=== PATIENT | male | born 1970 | race Caucasian/White ===

== ENCOUNTER 2018-02-14 21:30 | Inpatient (IN) | payer OTHER ==
[~2018-02-14] VITALS: Ht 175.3 cm; Wt 118.0 kg
[2018-02-14] MEDS ORDERED: LABETALOL 5MG/ML, 20ML IVPush STA ×2 (22:12→23:26)
[2018-02-14 22:37] LABS: BASOPHILS # (AUTO) 0.02 x10^3/uL (0-0.1); BASOPHILS % (AUTO) 0 % (0-1); EOSINOPHILS # (AUTO) 0.39 x10^3/uL (0-0.4); EOSINOPHILS % (AUTO) 4 % (1-7); LYMPHOCYTES # (AUTO) 1.42 x10^3/uL (1-3.4); LYMPHOCYTES % (AUTO) 15 % (22-44); MD NO; MEAN CORPUSCULAR HEMOGLOBIN 32.2 pg (27.5-34.5); MEAN CORPUSCULAR HGB CONC 34.7 g/dL (33.2-36.2); MEAN CORPUSCULAR VOLUME 92.7 fL (81-97); MEAN PLATELET VOLUME 7.3 fL (7.4-10.4); MONOCYTES # (AUTO) 0.79 x10^3/uL (0.2-0.8); MONOCYTES % (AUTO) 8 % (2-9); NEUTROPHILS # (AUTO) 7.06 x10^3/uL (1.8-6.8); NEUTROPHILS % (AUTO) 73 % (42-75); PLATELET COUNT 265 x10^3/uL (130-400); RED BLOOD COUNT 4.87 x10^6/uL (4.38-5.82); RED CELL DISTRIBUTION WIDTH 13.3 % (9.4-14.8)
[2018-02-14 22:48] LABS: ALANINE AMINOTRANSFERASE 33 U/L (12-78); ALBUMIN 3.6 g/dL (3.4-5.0); ANION GAP 8 mmol/L (5-15); CALCIUM 8.5 mg/dL (8.5-10.1); CHLORIDE 107 mmol/L (98-107)
[2018-02-14 22:52] LABS: ALKALINE PHOSPHATASE 77 U/L (45-117); BILIRUBIN,TOTAL 0.4 mg/dL (0.2-1.0); TOTAL PROTEIN 7.1 g/dL (6.4-8.2); TROPONIN I 0.055 ng/mL (0.000-0.045)
[2018-02-14] MEDS ORDERED: ASPIRIN 81 MG TABLET CHEW PO ONE (23:30)
[2018-02-14] MEDS ORDERED: ASPIRIN 81 MG TABLET CHEW ONE (23:40)
[2018-02-14] MEDS ORDERED: LABETALOL 20 MG/4 ML ONE (23:40)
[2018-02-14] MEDS ORDERED: ENOXAPARIN 120MG/0.8ML SQ STA (23:43)
[2018-02-15] VITALS (10 sets, daily range): BP systolic 164–192; BP diastolic 77–130
[2018-02-15] MEDS ORDERED: CEFTRIAXONE PMX 1GM/50ML 50 ML IV ONE
[2018-02-15] MEDS ORDERED: LABETALOL 20 MG/4 ML ONE (00:25)
[2018-02-15] MEDS ORDERED: CEFTRIAXONE PMX 1GM/50ML 50 ML ONE (00:25)
[2018-02-15] MEDS ORDERED: LISINOPRIL 10 MG TABLET PO ONE (00:30)
[2018-02-15] MEDS ORDERED: ACETAMINOPHEN 325 MG TABLET PO PRN (00:30)
[2018-02-15] MEDS ORDERED: MORPHINE SULFATE 4 MG/ML, 1ML IVPush PRN (00:30)
[2018-02-15] MEDS ORDERED: ONDANSETRON 2MG/ML, 2ML IVPush PRN (00:30)
[2018-02-15 00:39] LABS: THYROID STIMULATING HORMONE 1.72 mIU/L (0.358-3.740)
[2018-02-15] MEDS: METOPROLOL TARTRATE 50 MG TABLET PO SCH ×2 (01:23→06:11)
[2018-02-15] MEDS: hydrALAzine 20 MG/ML, 1ML IVPush PRN ×2 (04:00→15:23)
[2018-02-15 04:56] LABS: MICROSCOPIC NOT IND
[2018-02-15 04:58] LABS: CULTURE INDICATED? NO
[2018-02-15 05:24] LABS: TROPONIN I 0.059 ng/mL (0.000-0.045)
[2018-02-15] MEDS: AMPICILLIN/SULBACTAM 3 GM in SODIUM CHLORIDE 0.9% 100 ML IV SCH ×3 (06:56→19:38)
[2018-02-15] MEDS: TRIAMTERENE-HCTZ 37.5/25 MG TABLET PO SCH (08:45)
[2018-02-15] MEDS: ENOXAPARIN 40 MG/0.4 ML SQ SCH ×2 (08:46→19:38)
[2018-02-15] MEDS ORDERED: METOPROLOL TARTRATE 50 MG TABLET PO SCH (09:00)
[2018-02-15 12:28] LABS: TROPONIN I 0.051 ng/mL (0.000-0.045)
[2018-02-16 00:27] VITALS: BP 149/102
[2018-02-16] MEDS: AMPICILLIN/SULBACTAM 3 GM in SODIUM CHLORIDE 0.9% 100 ML IV SCH ×4 (00:48→18:15)
[2018-02-16 05:28] LABS: CHLORIDE 103 mmol/L (98-107)
[2018-02-16 05:31] LABS: ALBUMIN 3.8 g/dL (3.4-5.0); ANION GAP 7 mmol/L (5-15); CALCIUM 8.9 mg/dL (8.5-10.1); CREATININE 1.13 mg/dL (0.7-1.3)
[2018-02-16 07:14] VITALS: BP 157/96
[2018-02-16] MEDS: TRIAMTERENE-HCTZ 37.5/25 MG TABLET PO SCH (08:39)
[2018-02-16] MEDS: ENOXAPARIN 40 MG/0.4 ML SQ SCH ×2 (08:40→20:11)
[2018-02-16] MEDS: LISINOPRIL 10 MG TABLET PO SCH (08:40)
[2018-02-16] MEDS ORDERED: VANCOMYCIN PER PHARMACY MC PRN (18:30)
[2018-02-16] MEDS ORDERED: PHARMACOKINETIC MONITORING MC PRN (19:00)
[2018-02-16] MEDS ORDERED: PHARMACOKINETIC CONSULTATION MC ONE (19:00)
[2018-02-16 20:01] VITALS: BP 132/86
[2018-02-16] MEDS: VANCOMYCIN 1,800 MG in SODIUM CHLORIDE 0.9% 250 ML IV SCH (20:11)
[2018-02-16] MEDS: METOPROLOL TARTRATE 25 MG TABLET PO SCH (20:11)
[2018-02-17 00:12] VITALS: BP 160/90
[2018-02-17] MEDS: AMPICILLIN/SULBACTAM 3 GM in SODIUM CHLORIDE 0.9% 100 ML IV SCH ×4 (00:16→17:30)
[2018-02-17 05:20] LABS: BASOPHILS # (AUTO) 0.04 x10^3/uL (0-0.1); BASOPHILS % (AUTO) 0 % (0-1); EOSINOPHILS # (AUTO) 0.36 x10^3/uL (0-0.4); EOSINOPHILS % (AUTO) 4 % (1-7); LYMPHOCYTES # (AUTO) 1.65 x10^3/uL (1-3.4); LYMPHOCYTES % (AUTO) 18 % (22-44); MD NO; MEAN CORPUSCULAR HEMOGLOBIN 32.1 pg (27.5-34.5); MEAN CORPUSCULAR HGB CONC 34.8 g/dL (33.2-36.2); MEAN CORPUSCULAR VOLUME 92.3 fL (81-97); MEAN PLATELET VOLUME 7.6 fL (7.4-10.4); MONOCYTES # (AUTO) 0.86 x10^3/uL (0.2-0.8); MONOCYTES % (AUTO) 9 % (2-9); NEUTROPHILS # (AUTO) 6.31 x10^3/uL (1.8-6.8); NEUTROPHILS % (AUTO) 69 % (42-75); PLATELET COUNT 268 x10^3/uL (130-400); RED BLOOD COUNT 5.07 x10^6/uL (4.38-5.82); RED CELL DISTRIBUTION WIDTH 13.2 % (9.4-14.8)
[2018-02-17 05:25] LABS: ALANINE AMINOTRANSFERASE 27 U/L (12-78); ALBUMIN 3.6 g/dL (3.4-5.0); ANION GAP 8 mmol/L (5-15); CALCIUM 8.2 mg/dL (8.5-10.1); CHLORIDE 103 mmol/L (98-107); CREATININE 1.09 mg/dL (0.7-1.3)
[2018-02-17 05:28] LABS: ALKALINE PHOSPHATASE 67 U/L (45-117); BILIRUBIN,TOTAL 0.9 mg/dL (0.2-1.0); TOTAL PROTEIN 7.4 g/dL (6.4-8.2)
[2018-02-17 06:00] VITALS: BP 127/88
[2018-02-17] MEDS: METOPROLOL TARTRATE 25 MG TABLET PO SCH ×2 (06:04→17:30)
[2018-02-17 06:57] VITALS: BP 134/89
[2018-02-17] MEDS: TRIAMTERENE-HCTZ 37.5/25 MG TABLET PO SCH (09:04)
[2018-02-17] MEDS: ENOXAPARIN 40 MG/0.4 ML SQ SCH ×2 (09:04→19:45)
[2018-02-17] MEDS: VANCOMYCIN 1,800 MG in SODIUM CHLORIDE 0.9% 250 ML IV SCH ×2 (09:04→19:45)
[2018-02-17] MEDS: LISINOPRIL 10 MG TABLET PO SCH (09:05)
[2018-02-17 12:42] VITALS: BP 130/83
[2018-02-17 13:43] VITALS: BP 137/93
[2018-02-17 18:24] VITALS: BP 149/77
[2018-02-18] MEDS: AMPICILLIN/SULBACTAM 3 GM in SODIUM CHLORIDE 0.9% 100 ML IV SCH ×3 (00:37→12:46)
[2018-02-18 01:08] VITALS: BP 144/81
[2018-02-18] MEDS: METOPROLOL TARTRATE 25 MG TABLET PO SCH (06:16)
[2018-02-18 06:55] VITALS: BP 132/90
[2018-02-18] MEDS: LISINOPRIL 10 MG TABLET PO SCH (09:00)
[2018-02-18] MEDS: TRIAMTERENE-HCTZ 37.5/25 MG TABLET PO SCH (09:05)
[2018-02-18] MEDS: VANCOMYCIN 1,800 MG in SODIUM CHLORIDE 0.9% 250 ML IV SCH (09:05)
[2018-02-18] MEDS: ENOXAPARIN 40 MG/0.4 ML SQ SCH (09:05)
[2018-02-18] MEDS ORDERED: LISI-167 PO (13:41)
[2018-02-18] MEDS ORDERED: AMOX-291 PO (13:41)
[2018-02-18] MEDS ORDERED: METO25TA35 PO (13:41)
[2018-02-18] MEDS ORDERED: TRIA1TAB3 PO (13:41)
[2018-02-18] MEDS ORDERED: ATOR20TA37 PO (13:50)
[2018-02-18] MEDS ORDERED: ASPI81TA45 PO (13:50)
== END 2018-02-18 15:08 | disposition home or self-care (01) | DRG 300 ==
LOC: ED 23:11 → EDIP 02-15 00:05 → SUATTDRO 02-15 00:09 → 5SO 02-15 00:53 → 3NE 02-17 13:06
PROVIDERS: ADMIT Internal Medicine; ATTEND Internal Medicine
DX: I82.812 Embolism and thrombosis of superficial veins of left lower extremity (principal); L03.116 Cellulitis of left lower limb; I16.9 Hypertensive crisis, unspecified; Z68.41 Body mass index [BMI] 40.0-44.9, adult; I24.8 Other forms of acute ischemic heart disease; I10 Essential (primary) hypertension; E66.01 Morbid (severe) obesity due to excess calories; B95.61 Methicillin susceptible Staphylococcus aureus infection as the cause of diseases classified elsewhere; Z68.38 Body mass index [BMI] 38.0-38.9, adult
CPT/HCPCS: 36415; 80048; 80053; 80202; 81003; 82040; 83880; 84443; 84484; 85025; 87040; 87070; 87077; 87186; 87205; 93005; 93306; 96372; 96374; 96375; 96376; G0378; J0295; J0696; J1650; J3370; J0360; J7050